=== PATIENT | male | born 1940 | race Caucasian/White ===

== ENCOUNTER → 2019-08-13 08:43 | Outpatient (CLI) | payer MEDICARE, BC ==
--- NOTE | 2019-08-17 15:00 | EC ---
PATIENT:ROSA PERSAUD DATE OF SERVICE: 08/13/19 SEX: M MEDICAL RECORD: [id number] DATE OF : 40 LOCATION:D.[facility] AGE OF PATIENT: 79 ADMISSION DATE: 08/13/19 REFERRING PHYSICIAN: INTERPRETING PHYSICIAN: TANIYA KABA MD ECHOCARDIOGRAM REPORT ECHO CHARGES 4 ECHO COMPLETE Date: 08/13/19 CLINICAL DIAGNOSIS: CAD/AORTIC STENOSIS/HTN ECHOCARDIOGRAPHIC MEASUREMENTS (adult normal given) AC root (d.<3.7cm) 3.5 cm LV Septum d (<1.2 cm> 2.2 cm Valve Excursion 2.0 cm LV Septum (systole) 2.3 cm Left Atria (s.<4.0cm> 3.9 cm LVPW d(<1.2cm) 2.0 cm RV (d.<2.3cm) 3.5 cm LVPW (sytole) 2.3 cm LV diastole(<5.6CM) 6.1 cm MV E-F(>70mm/sec) cm LV systole 4.0 cm LVOT Diameter 1.5 cm MV exc.(>10mm) cm Est.ejection fraction (50-75%) % DOPPLER: LVIT cm/sec A 101.0cm/sec E 62.0 cm/sec LA cm/sec RVSP 16 mmHg LVOT 92 cm/sec AOP1/2T 691 m/s Asc. Ao 183 cm/sec RVOT cm/sec RA cm/sec PA cm/sec AV Gradient Peak 13.35mmHg AV Mean 8.11 mmHg AV Area 1.1 cm MV Gradient Peak 4.55 mmHg MV Mean 1.10 mmHg MV Area cm COMMENTS: Vitamin Manager: 2 VIJAY WYNN Occupational Therapy Assistant: 3 Dr. Quiñonez TAPE# PACS Pericardial Effusion N DATE OF SERVICE: Adequate 2D, color flow imaging, spectral Doppler, and M-Mode LVH is present. LV internal dimension is normal. Wall motion is normal. EF is greater than or equal to 55%. Aortic valve is sclerosed without evidence of stenosis by Doppler interrogation. There is mild plus AI by color flow imaging. Left atrium is normal at 3.9 cm. Mitral valve shows no prolapse. Trace MR. Right-sided chambers are grossly normal. Trace TR. ECHOCARDIOGRAM REPORT [id number] ROSA PERSAUD TRANSINT:[id number] Voice Confirmation ID: [id number] DOCUMENT ID: [id number] TANIYA KABA MD at 1500 CC: [id number] DICTATION DATE: 08/14/19 100 CASTING ASSISTANT: 08/14/19 1235 DEP CLI 08/13/19 [place] [id number] [place] [id number]
== END | disposition home or self-care (01) ==
LOC: D.HCCECHO 08:43
PROVIDERS: ATTEND Internal Medicine Interventional Cardiology
DX: I25.10 Atherosclerotic heart disease of native coronary artery without angina pectoris (principal)

== ENCOUNTER → 2020-08-30 09:36 | Outpatient (CLI) | payer MEDICARE, BC ==
--- NOTE | 2020-08-31 08:06 | EC ---
PATIENT:ROSA PERSAUD DATE OF SERVICE: 08/30/20 SEX: M MEDICAL RECORD: [id number] DATE OF : 40 LOCATION:D[facility] AGE OF PATIENT: 80 ADMISSION DATE: 08/30/20 REFERRING PHYSICIAN: INTERPRETING PHYSICIAN: TANIYA KABA MD ECHOCARDIOGRAM REPORT ECHO CHARGES 4 ECHO COMPLETE Date: 08/30/20 CLINICAL DIAGNOSIS: AORTIC STENOSIS ECHOCARDIOGRAPHIC MEASUREMENTS (adult normal given) AC root (d.<3.7cm) 3.4 cm LV Septum d (<1.2 cm> 1.2 cm Valve Excursion 1.7 cm LV Septum (systole) 1.6 cm Left Atria (s.<4.0cm> 3.6 cm LVPW d(<1.2cm) 1.5 cm RV (d.<2.3cm) 3.8 cm LVPW (sytole) 1.7 cm LV diastole(<5.6CM) 5.1 cm MV E-F(>70mm/sec) cm LV systole 3.4 cm LVOT Diameter 2.2 cm MV exc.(>10mm) 1.2 cm Est.ejection fraction (50-75%) % DOPPLER: LVIT cm/sec A 101.0cm/sec E 71.0 cm/sec LA cm/sec RVSP 25 mmHg LVOT 108 cm/sec AOP1/2T m/s Asc. Ao 303 cm/sec RVOT 90 cm/sec RA cm/sec PA 119 cm/sec AV Gradient Peak 36.69mmHg AV Mean 20.54mmHg AV Area 1.6 cm MV Gradient Peak 4.88 mmHg MV Mean 2.00 mmHg MV Area cm COMMENTS: Lug Breaker And Wire Puller: 2 VIJAY WYNN Pot Reliner: 3 Dr. Quiñonez TAPE# PACS Pericardial Effusion N DATE OF SERVICE: Adequate 2D, color flow imaging, spectral Doppler, and M-Mode. FINDINGS: LVH is present. LV internal dimensions are normal. Wall motion is normal. EF is greater than or equal to 55%. Aortic valve is calcified with restriction of leaflet motion. Peak gradient of 36 mmHg putting this in a moderate range. There is mild AI as well. Left atrium is normal. Mitral valve shows no prolapse. Mild MR. Right side is grossly normal. Mild TR. ECHOCARDIOGRAM REPORT [id number] ROSA PERSAUD TRANSINT:[id number] Voice Confirmation ID: [id number] DOCUMENT ID: [id number] TANIYA KABA MD at 0806 CC: [id number] DICTATION DATE: 08/30/201601 MANAGER ADVERTISING: 08/30/202251 DEP CLI 08/30/20 [place] [id number] [place] [id number]
== END | disposition home or self-care (01) ==
LOC: D.HCCECHO 09:36
PROVIDERS: ATTEND Internal Medicine Interventional Cardiology
DX: I35.0 Nonrheumatic aortic (valve) stenosis (principal)